=== PATIENT | female | born 1975 | race Caucasian/White ===

== ENCOUNTER 2022-08-10 01:30 | Day surgery (SDC) | payer BC, SELFPAY ==
[2022-06-29 11:27] VITALS: BMI 43.0
--- NOTE | 2022-08-03 12:02 | PC.NURSE ---
Pt denied any changes to home meds/health history since previous PAT call completed 06/29/22. Pt verbalized understanding of updated procedure date/times. Pt denied any questions.
[2022-08-10 09:41] VITALS: BP 167/102; PULSE 76; RESP 20; TEMP 36.3; O2SAT 100; BMI 42.7
[2022-08-10] MEDS: LACTATED RINGERS 1,000 ML 150 ML IV CONT (09:44)
--- NOTE | 2022-08-10 10:01 | WPDANESEPPF ---
Anes - Initial Pre Proc Eval Procedure: Operation Date: 08/10/22 10:30 Proposed Procedures p Screening Colonoscopy - Jose Urbina MD Date/Time: 08/10/22 10:01 Surgeon: Jose Urbina MD Pre Op Diagnosis: neoplasm screening Patient Data Age: 47 Gender: F Height: 1.75 m Weight: 131.5 kg Last Vital Signs Temp 36.3 C L 08/10/22 09:41 Pulse 76 08/10/22 09:41 Resp 20 08/10/22 09:41 BP 167/102 H 08/10/22 09:41 Pulse Ox 100 08/10/22 09:41 O2 Del Method Room Air 08/10/22 09:41 Allergies Allergy/AdvReac Type Severity Reaction Status Date / Time No Known Allergies Allergy Verified 08/10/22 09:40 Home Medications Medication Instructions Recorded Confirmed Type irbesartan 300 1 tablet PO DAILY #30 tabs 08/03/21 08/10/22 Rx mg-hydrochlorothiazide 12.5 mg tablet Patient hx anesthesia problems: none Family hx anesthesia problems: none Results Review: All pre-operative results and documents have been reviewed as part of the pre-operative evaluation. [facility] Past Medical History Medical History Benign essential HTN Morbid obesity WATSON (obstructive sleep apnea) Family History Family History Father Hypertension Family history of elevated blood lipids Family history of diabetes mellitus in first degree relative Carcinoma of colon, Onset Age: 59 Mother Family history of malignant melanoma, Onset Age: 51 Patient's mother is Other Diabetes mellitus Family history of allergic disorder Family history of arthritis Family history of cardiovascular disease Family history of malignant neoplasm Social History Social History (Updated 05/10/22 @ 14:47 by Charlette Byrd) Social History: Smoking packs per day: 0.5 Smoking cigarettes per day: 10.0 Years smoked: 3 Smoking pack-years: 1.50 Smoking status: Former smoker Tobacco type: cigarettes Second hand tobacco smoke exposure: No Additional smoking assessment comments: stopped 25 years ago Alcohol intake: current Alcohol use details: socially Substance use: never Substance use type: does not use Living arrangements: with family Occupation/Education: occupation Gender identity (if verbalized by the patient): Female Sexual Orientation (if Verbalized by the Patient): Straight or Heterosexual Spiritual care concerns: No Anes - Eval Final PreProcedure Day of Procedure 08/10/22 10:01 Patient weight: obese Heart: regular rate and rhythm Lungs: clear to auscultation and normal air movement Airway: Mallampati scale class II Neurological: alert and oriented Last oral intake: >/= 8 hours ASA classification: III Emergent: no Anesthetic plan: proceed Anesthesia type and monitoring: general GIVS Results Review: All pre-operative results and documents have been reviewed as part of the pre-operative evaluation. Informed Consent: The patient's anesthetic plan and its attendant risks and benefits were discussed with the patient/family/POA. Questions were solicited and answers provided to the satisfaction of the patient/family/POA.
--- NOTE | 2022-08-10 10:10 | PM.HPGS ---
History of Present Illness History of Present Illness Consent: Risks, benefits, and alternatives have been discussed and questions answered. Patient agrees to proceed with procedure. Chief complaint: neoplasm screening Narrative: Luz Maria Freire is a 47 year old female here for first screening colonoscopy Review of Systems Constitutional: Constitutional: Denies headache(s) and Denies weakness Eyes: Eyes: Denies blurry vision ENT: Reports Normal hearing present, Denies headache(s) and Denies neck pain Cardiovascular: Cardiovascular: Denies chest pain and Denies dyspnea Respiratory: Respiratory: Denies dyspnea Gastrointestinal: Gastrointestinal: Reports no additional gastrointestinal complaints Genitourinary: Genitourinary: Denies dysuria Musculoskeletal: Musculoskeletal: Denies neck pain Integumentary/Breasts: Skin/Breast: Denies dry skin Neurologic: Reports Normal hearing present, Denies headache(s) and Denies weakness Psychiatric: Psychiatric: Denies anxiety Endocrine: Endocrine: Denies change in body appearance Hematologic/Lymphatic: Hematologic/Lymphatic: Denies easy bleeding Allergic/Immunologic: Allergic/Immunologic: Denies urticaria PMFSH Past Medical History Medical History Benign essential HTN Morbid obesity WATSON (obstructive sleep apnea) Family History Family History Father Hypertension Family history of elevated blood lipids Family history of diabetes mellitus in first degree relative Carcinoma of colon, Onset Age: 59 Mother Family history of malignant melanoma, Onset Age: 51 Patient's mother is Other Diabetes mellitus Family history of allergic disorder Family history of arthritis Family history of cardiovascular disease Family history of malignant neoplasm Social History Social History (Updated 05/10/22 @ 14:47 by Charlette Byrd) Social History: Smoking packs per day: 0.5 Smoking cigarettes per day: 10.0 Years smoked: 3 Smoking pack-years: 1.50 Smoking status: Former smoker Tobacco type: cigarettes Second hand tobacco smoke exposure: No Additional smoking assessment comments: stopped 25 years ago Alcohol intake: current Alcohol use details: socially Substance use: never Substance use type: does not use Living arrangements: with family Occupation/Education: occupation Gender identity (if verbalized by the patient): Female Sexual Orientation (if Verbalized by the Patient): Straight or Heterosexual Spiritual care concerns: No Meds Home Medications and Allergies Home Medications Medication Instructions Recorded Confirmed Type irbesartan 300 1 tablet PO DAILY #30 tabs 08/03/21 08/10/22 Rx mg-hydrochlorothiazide 12.5 mg tablet Allergies Allergy/AdvReac Type Severity Reaction Status Date / Time No Known Allergies Allergy Verified 08/10/22 09:40 Vital Signs Vital Signs - 24 hr 08/10/22 09:41 Temperature 97.3 F L Pulse Rate 76 Respiratory Rate 20 Blood Pressure 167/102 H Pulse Oximetry 100 Oxygen Delivery Room Air Exam Const: General: comfortable and no acute distress HENMT: Face/Nose/Sinus: Normal nares present Eyes: General: appearance normal, both eyes and all related structures Neck: Neck: no JVD Resp: Auscultation: clear to auscultation bilaterally Cardio: Rate: regular rate Rhythm: regular rhythm GI: Inspection: non-distended GI Palp: Yes Soft to palpation Skin: General skin exam: normal color Neuro: General: gait normal Speech: normal speech Extrem: General: normal to inspection Psych: Mental Status: mental status grossly normal Assessment and Plan Assessment and plan (1) Colon cancer screening: Code(s): Z12.11 - Encounter for screening for malignant neoplasm of colon Status: Acute Assessment and Plan:
[2022-08-10 10:28] VITALS: BP 119/60; PULSE 71; RESP 16; O2SAT 100
[2022-08-10 10:38] VITALS: BP 136/80; PULSE 67; RESP 22; O2SAT 100
[2022-08-10 10:48] VITALS: BP 111/63; PULSE 71; RESP 14; O2SAT 97
== END 2022-08-10 11:07 | disposition home or self-care (01) ==
PROVIDERS: PCP Family Medicine; Visit Provider Internal Medicine Gastroenterology
PROC: 0DJD8ZZ Inspection of Lower Intestinal Tract, Via Natural or Artificial Opening Endoscopic (ICD-10-PCS; CPT 45378; principal; 2022-08-10 10:30)
DX: Z12.11 Encounter for screening for malignant neoplasm of colon (principal); K64.8 Other hemorrhoids; I10 Essential (primary) hypertension; G47.33 Obstructive sleep apnea (adult) (pediatric); E66.01 Morbid (severe) obesity due to excess calories; Z68.41 Body mass index [BMI] 40.0-44.9, adult; Z87.891 Personal history of nicotine dependence
CPT/HCPCS: 45378; J2704; J7120

== ENCOUNTER → 2022-10-30 15:10 | Outpatient (CLI) | payer BC, SELFPAY ==
--- NOTE | ~2022-10-30 | MM_ITS ---
EXAMINATION: MM screening [facility] BI w susan HISTORY: Screening mammogram TECHNIQUE: Craniocaudal and mediolateral oblique 3-D tomosynthesis images were obtained and synthetic 2-D images were generated. CAD analysis was submitted and interpreted. COMPARISON: 04/08/2017, 03/28/2016 BREAST PARENCHYMAL COMPOSITION: The breasts are almost entirely fatty. FINDINGS: No suspicious mass, calcification, or architectural distortion are identified in either sergei ast to suggest malignancy. There has been no suspicious interval change. IMPRESSION: 1. No mammographic evidence of malignancy. 2. Recommend routine screening mammography in one year. BI-RADS Category 1: Negative Reviewed, dictated and finalized at location A.
== END ==
PROVIDERS: PCP Family Medicine; Visit Provider Family Medicine
DX: Z12.31 Encounter for screening mammogram for malignant neoplasm of breast (principal)
CPT/HCPCS: 77063; 77067

== ENCOUNTER 2024-01-31 10:07 | Outpatient (CLI) | payer BC, SELFPAY ==
--- NOTE | ~2024-01-31 | MM_ITS ---
EXAMINATION: MM screening [facility] BI w susan HISTORY: Screening mammogram TECHNIQUE: Craniocaudal and mediolateral oblique 3-D tomosynthesis images were obtained and synthetic 2-D images were generated. CAD analysis was submitted and interpreted. COMPARISON: 10/30/2022, 04/08/2017 bilateral screening mammogram examinations BREAST PARENCHYMAL COMPOSITION: The breasts are almost entirely fatty. FINDINGS: There is no evidence of suspicious mass, calcification, or architectural distortion to sugg est malignancy in either breast. There has been no suspicious interval change. IMPRESSION: 1. No mammographic evidence of malignancy. 2. Recommend routine screening mammography in one year. BI-RADS Category 1: Negative Reviewed, dictated and finalized at location A. [facility]
== END 2024-01-31 10:08 | disposition home or self-care (01) ==
LOC: MICIMG 10:07
PROVIDERS: PCP Family Medicine; Visit Provider Family Medicine
DX: Z12.31 Encounter for screening mammogram for malignant neoplasm of breast (principal)
CPT/HCPCS: 77063; 77067